=== PATIENT | female | born 1955 | race Caucasian/White ===

== ENCOUNTER 2023-11-18 15:07 | Inpatient (IN) | payer OTHER ==
[~2023-11-18] VITALS: Ht 154.9 cm; Wt 59.9 kg
[2023-11-18] MEDS ORDERED: ETOMIDATE 2 MG/ML VIAL IV ONE (15:13)
[2023-11-18] MEDS ORDERED: LOPE2TAB25 PO (16:01)
[2023-11-18] MEDS ORDERED: ACET-868 PO (16:01)
[2023-11-18] MEDS ORDERED: ONDA4TAB5 PO (16:01)
[2023-11-18] MEDS ORDERED: OLAN5TAB3 PO (16:01)
[2023-11-18] MEDS ORDERED: MAG355OR18 PO (16:01)
[2023-11-18] MEDS ORDERED: ACET-2030 PO (16:01)
[2023-11-18] MEDS ORDERED: CALC500T89 PO (16:01)
[2023-11-18] MEDS ORDERED: AMIN30LI66 PO (16:01)
[2023-11-18] MEDS: IV NS 0.9% 500 ML BAG IV ONE (16:11)
[2023-11-18 16:34] LABS: BASOPHILS % (AUTO) 0.1 % (0.0-2.0); EOSINOPHILS % (AUTO) 0.1 % (0.0-6.0); HEMATOCRIT 25 % (33-45); HEMOGLOBIN 8.1 g/dL (11.5-14.8); LYMPHOCYTES # (AUTO) 0.4 K/uL (0.8-4.8); LYMPHOCYTES % (AUTO) 29.4 % (20.0-44.0); MEAN CORPUSCULAR HEMOGLOBIN 30 PG (26.0-33.0); MEAN CORPUSCULAR HGB CONC 33 g/dl (31.0-36.0); MEAN CORPUSCULAR VOLUME 91 fL (82-100); MONOCYTES % (AUTO) 0.7 % (2.0-12.0); NEUTROPHILS % (AUTO) 69.7 % (43.0-81.0); PLATELET COUNT (AUTO) 228 K/uL (150-450); RED BLOOD CELL COUNT(AUTO) 2.73 MIL/uL (4.0-5.2); RED CELL DISTRIBUTION WIDTH 20.1 % (11.5-15.0)
[2023-11-18 16:36] LABS: INR 1.45 (0.91-1.10); PARTIAL THROMBOPLASTIN TIME 34.7 SEC (24.3-34.3); PROTHROMBIN TIME 14.6 SECS (9.2-11.1)
[2023-11-18 16:38] LABS: LACTIC ACID 1.7 mmol/L (0.4-2.0)
[2023-11-18 16:45] LABS: ALANINE AMINOTRANSFERASE 63 U/L (12-78); ALKALINE PHOSPHATASE 345 U/L (46-116); ASPARTATE AMINOTRANSFERASE 55 U/L (15-37); BILIRUBIN,DIRECT 1.6 mg/dL (0.0-0.2); CALCIUM, SERUM 7.2 mg/dL (8.5-10.1); CARBON DIOXIDE 20 mmol/L (21-32); CHLORIDE 108 mmol/L (98-107); CREATININE 0.5 mg/dL (0.6-1.3); POTASSIUM 3.2 mmol/L (3.5-5.1); SODIUM SERUM 136 mmol/L (136-145); TOTAL PROTEIN, SERUM 4.2 g/dL (6.4-8.2); UREA NITROGEN, BLOOD 26 mg/dL (7-18); WHITE BLOOD COUNT (AUTO) 1.4 K/uL (4.3-11.0)
[2023-11-18] MEDS ORDERED: DEXTROSE 50%-WATER 50 ML DISP.SYRIN ONE ×3 (16:50→22:24)
[2023-11-18 17:17] LABS: ALBUMIN 0.6 g/dL (3.4-5.0); GLUCOSE 7 mg/dL (74-106)
[2023-11-18] MEDS: NOREPINEPHRINE 8 MG in IV D5W 250ML IV PRN (17:19)
[2023-11-18] MEDS: DEXTROSE 50%-WATER 50 ML DISP.SYRIN IVP ONE ×3 (17:19→22:59)
[2023-11-18] MEDS: PIPERACILLIN /TAZOBACTAM 3.375 G in IV D5W 50 ML IV ONE (17:30)
[2023-11-18 17:46] LABS: APPEARANCE,URINE Turbid (CLEAR); BILIRUBIN,URINE MODERATE (NEGATIVE); BLOOD, URINE Small Ery/uL (NEGATIVE); COLOR,URINE DARK YELLOW (YELLOW); KETONES,URINE Trace mg/dL (NEGATIVE); LEUKOCYTE ESTERASE ,URINE Trace (NEGATIVE); NITRITE, URINE Negative (NEGATIVE); PH,URINE 5.5 (5.0-8.0); PROTEIN,URINE Negative (NEGATIVE); UGLUCOSE Negative (NEGATIVE)
[2023-11-18 17:48] LABS: BAND % (MANUAL) 10 % (0.0-5.0); LYMPHOCYTES % (MANUAL) 25 % (16-48); MONOCYTES % (MANUAL) 5 % (0-11.0); NEUTROPHILS % (MANUAL) 60 (42-76); PLATELET ESTIMATE ADEQUATE
[2023-11-18 17:49] LABS: ANISOCYTOSIS 1+; HYPOCHROMASIA 2+; TARGET CELLS 2+
[2023-11-18 18:11] LABS: ADD URINE CULTURE YES; BACTERIA,URINE 2+ /HPF (None Seen); SQUAMOUS EPITHELIAL CELL,UR 0-2 /HPF (None Seen)
[2023-11-18] MEDS: IV NS 0.9% 1,000 ML BAG IV ONE (18:30)
[2023-11-18 18:39] LABS: ABG BASE EXCESS -6.2 mmol/L (-2.0-2.0); ABG OXYGEN SATURATION 95.3 % (92.0-98.5); ABG PH 7.428 (7.350-7.450); ABG PO2 210.5 mmHg (75.0-100.0); ABG TOTAL HEMOGLOBIN 6.7 G/dL (12.0-16.0); MetHb 0.1 % (0.0-1.5); O2Hb 95.2 % (94.0-97.0); PEEP,BG 5 cm H2O; SITE, ABG Left Femoral; VT, ABG 450 mL
[2023-11-18] MEDS ORDERED: MAG HYDROX/AL HYDROX/SIMETH 30 ML UDC PO PRN (19:00)
[2023-11-18] MEDS ORDERED: ACETAMINOPHEN 325 MG TABLET PO PRN (19:00)
[2023-11-18] MEDS ORDERED: MAGNESIUM HYDROXIDE 30 ML UDC PO PRN (19:00)
[2023-11-18] MEDS ORDERED: IV D5/0.45 NACL 1,000 ML IV PRN (19:00)
[2023-11-18] MEDS ORDERED: ZOLPIDEM TARTRATE 5 MG TABLET PO PRN (19:00)
[2023-11-18] MEDS ORDERED: ONDANSETRON HCL/PF 4 MG/2 ML VIAL IVP PRN (19:00)
[2023-11-18] MEDS ORDERED: Z GUARD REMEDY 4 OZ OINT TP PRN (19:00)
[2023-11-18 19:07] VITALS: TEMP 95.1
[2023-11-18] MEDS ORDERED: FENTANYL CITRAT IV 2,500 MCG in IV NS 0.9% 200 ML IV PRN (19:30)
[2023-11-18] MEDS ORDERED: MIDAZOLAM HCL 100 MG in IV NS 0.9% 80 ML IV PRN (19:30)
[2023-11-18] MEDS ORDERED: INSULIN REGULAR, HUMAN 100 UNIT/ML 3 ML VIAL SQ PRN (19:30)
[2023-11-18] MEDS ORDERED: DEXTROSE 50%-WATER 50 ML DISP.SYRIN IV PRN (19:30)
[2023-11-18] MEDS ORDERED: CT SWABBABLE VALVE TRANS SET 1 EA INFUS.SET MC ONE (20:03)
[2023-11-18] MEDS ORDERED: IOHEXOL-350 100 ML VIAL IV ONE (20:03)
[2023-11-18] MEDS ORDERED: ALBUMIN 25% 50 ML IV ONE (20:17)
[2023-11-18] MEDS: ALBUMIN 25% 12.5 GM/50 ML BOTTLE IV ONE ×2 (20:37→22:58)
[2023-11-18] MEDS ORDERED: PHENYLEPHRINE 10 MG/ML VIAL ONE (20:43)
[2023-11-18] MEDS ORDERED: BLOOD SUGAR DIAGNOSTIC 1 EACH STRIP IN SCH (21:00)
[2023-11-18] MEDS ORDERED: NOREPINEPHRINE 32 MG in IV NS 0.9% 250 ML IV PRN (21:00)
[2023-11-18] MEDS: PHENYLEPHRINE 50 MG in IV NS 0.9% 245 ML IV PRN (21:07)
[2023-11-18] MEDS ORDERED: ZOSYN IVPB 4.5 G in IV D5W 50ml IV SCH (22:00)
[2023-11-18] MEDS: ZOSYN IVPB 3.375 G in IV D5W 50ml IV SCH (22:00)
[2023-11-18] MEDS ORDERED: VASOPRESSIN INJ 20 UNIT/ML VIAL ONE (22:47)
[2023-11-18] MEDS: HYDROCORTISONE SOD SUCCINATE 100 MG/2 ML VIAL IV ONE (22:59)
[2023-11-18] MEDS ORDERED: ENOXAPARIN SODIUM 40 MG/0.4 ML DISP.SYRIN SQ SCH (23:00)
[2023-11-18] MEDS ORDERED: VASOPRESSIN INJ 40 UNIT in IV NS 0.9% 38 ML IV PRN (23:00)
[2023-11-19 05:18] VITALS: BP 0/0; O2SAT 0
[2023-11-19] MEDS ORDERED: PANTOPRAZOLE 40 MG VIAL IV SCH (09:00)
== END 2023-11-19 03:00 | DRG 871 ==
LOC: ER 15:12 → TRANSITION 23:33
PROVIDERS: ADMIT Student in an Organized Health Care Education/Training Program; ATTEND Student in an Organized Health Care Education/Training Program
PROC: 5A1935Z Respiratory Ventilation, Less than 24 Consecutive Hours (ICD-10-PCS; principal; 2023-11-18)
PROC: 0BH17EZ Insertion of Endotracheal Airway into Trachea, Via Natural or Artificial Opening (ICD-10-PCS; 2023-11-18)
PROC: 06HY33Z Insertion of Infusion Device into Lower Vein, Percutaneous Approach (ICD-10-PCS; 2023-11-18)
DX: A41.9 Sepsis, unspecified organism (principal); I50.43 Acute on chronic combined systolic (congestive) and diastolic (congestive) heart failure; J15.69 Pneumonia due to other Gram-negative bacteria; R65.21 Severe sepsis with septic shock; J96.01 Acute respiratory failure with hypoxia; J91.8 Pleural effusion in other conditions classified elsewhere; N39.0 Urinary tract infection, site not specified; E44.1 Mild protein-calorie malnutrition; Z66 Do not resuscitate; Y95 Nosocomial condition; E87.6 Hypokalemia; D64.9 Anemia, unspecified; F31.9 Bipolar disorder, unspecified; F20.9 Schizophrenia, unspecified; E88.09 Other disorders of plasma-protein metabolism, not elsewhere classified; E86.0 Dehydration; Z85.3 Personal history of malignant neoplasm of breast; E16.2 Hypoglycemia, unspecified; Z68.24 Body mass index [BMI] 24.0-24.9, adult; R60.0 Localized edema
CPT/HCPCS: 31720; 36415; 36600; 71045-TC; 80048-TC; 80076-TC; 81001; 82803-TC; 82962-TC; 83605-TC; 84484-TC; 85025-TC; 85730-TC; 87040-TC; 93307-TC; 94002-TC; 94799-TC; A4223; G0378; J1650; J1720; J1815; J2250; J2470; J2543; J3010; J3490; J7030; J7040; J7050; J7060; P9047; Q9967